=== PATIENT | male | born 1975 | race Caucasian/White ===

== ENCOUNTER 2018-07-03 11:30 | Emergency (ER) | payer OTHER ==
--- NOTE | 2018-07-03 11:35 | ED Physician Documentation ---
General Adult - HISTORIAN Historian: patient - HPI Stated Complaint: back pain Chief Complaint: Low Back Pain/ Injury Onset: days ago (4) Timing: still present Severity: mild Further Comments: yes (He denies any injury. States the pain is lower back like a cramp. He has no other pain. He has not tried any OTC meds or treatments for pain. Denies any loss of control of bowel or bladder. No other complaints) Last known Well Code/Unknown Code: Unknown - ROS CONST: no problems - PAST HX Past History: none Allergies/Adverse Reactions: Allergies Allergy/AdvReac Type Severity Reaction Status Date / Time No Known Allergies Allergy Verified 07/03/18 11:39 Home Medications: Ambulatory Orders Medication Instructions Recorded NK 07/03/18 - SOCIAL HX Smoking History: cigarettes Alcohol Use: none Drug Use: none - FAMILY HX Family History: No - REVIEWED ASSESSMENTS Nursing Assessment Reviewed: Yes Vitals Reviewed: Yes Progress - Progress Progress: 1220: Pt is sleeping in room. Awakened to discuss results. Plan is discussed and agreeable DG ED Results Lab/Radiology - Radiology Radiology Impressions: Lumbar spine History: Low back pain AP and lateral projections of the lumbar spine demonstrate normal alignment. There is moderately severe disc space narrowing with anterior spondylosis at L5/S1. There is mild facet arthropathy at L4/5 and L5/S1. Vertebral body height is maintained. Impression: Findings consistent with degenerative disc disease at L5/S1. Mild facet arthropathy at L4/5 and L5/S1. No acute osseous abnormality. Electronically signed on Jul 03, 2018 12:45:30 PM INSURANCE ANALYST by: Shweta Gee General Adult Physical Exam - PHYSICAL EXAM GENERAL APPEARANCE: no distress EENT: eye inspection normal, no signs of dehydration NECK: normal inspection RESPIRATORY: no resp distress, chest non-tender, breath sounds normal CVS: reg rate & rhythm, heart sounds normal ABDOMEN: soft, normal bowel sounds, no distension BACK: normal inspection, no CVA tenderness, other (mild tenderness with palpation lower back ) SKIN: warm/dry, normal color EXTREMITIES: non-tender, normal range of motion, no evidence of injury, no edema NEURO: oriented X3 Discharge Clincal Impression: Low back pain Qualifiers: Chronicity: acute Back pain laterality: bilateral Sciatica presence: unspecified whether sciatica present Qualified Code(s): M54.5 - Low back pain Referrals: Primary Doctor,No [Primary Care Provider] - 2 Days Comments: 1. Cyclobenzaprine 10 mg take 1 by mouth every 12 hours as needed for pain 2. Medrol Dose pack - take as directed 3. Tramadol 50 mg take 1 by mouth every 12 hours as needed for pain 4. Follow up with PCP in 2-4 days for further eval 5. Return to ER for any concerns Condition: Stable Disposition: 01 HOME, SELF-CARE Decision to Admit: NO Date of Decison to Admit: 07/03/18 Decision Time: 13:09
[2018-07-03 11:42] VITALS: BP 123/98
[2018-07-03] MEDS ORDERED: KETOROLAC TROMETHAMINE 60 MG/2 ML VIAL IM ONE (11:47)
[2018-07-03] MEDS ORDERED: ORPHENADRINE CITRATE 60 MG/2 ML ML IM ONE (11:47)
[2018-07-03] MEDS ORDERED: ORPHENADRINE CITRATE 60 MG/2 ML ML ONE (11:48)
[2018-07-03] MEDS ORDERED: KETOROLAC TROMETHAMINE 60 MG/2 ML VIAL ONE (11:48)
[2018-07-03 17:39] LABS: CANNABINOIDS NEGATIVE ng/mL (< 50); METHYLENEDIOXYMETHAMPHETAMINE NEGATIVE ng/mL (<500)
[2018-07-03 17:41] LABS: APPEARANCE,URINE CLEAR (CLEAR); COLOR,URINE YELLOW (YELLOW); OCCULT BLOOD,URINE TRACE-INTACT (NEGATIVE); PH URINE 7.5 (5.0 - 8.0); UROBILINOGEN URINE 0.2 Eu (0.2-1.0)
--- NOTE | 2018-07-03 19:06 | Diagnostic Imaging Report ---
EMILY TODD [facility] [address] [id number] Report Submission Date: Jul 03, 2018 12:45:30 PM BILLING CLERK Patient Study Name: KINZA ESCAMILLA Date: Jul 03, 2018 12:01:47 PM BILLING CLERK Modality Type: DX Gender: M Description: SPINE : 73 Institution: [facility] Physician: EMILY TODD Lumbar spine History: Low back pain AP and lateral projections of the lumbar spine demonstrate normal alignment. There is moderately severe disc space narrowing with anterior spondylosis at L5/S1. There is mild facet arthropathy at L4/5 and L5/S1. Vertebral body height is maintained. Impression: Findings consistent with degenerative disc disease at L5/S1. Mild facet arthropathy at L4/5 and L5/S1. No acute osseous abnormality. Electronically signed on Jul 03, 2018 12:45:30 PM BILLING CLERK by: Shweta VANCE
== END 2018-07-03 13:15 | disposition home or self-care (01) ==
LOC: ED 11:30
DX: M54.5 Low back pain (principal)
CPT/HCPCS: 72100; 80377; 81002; 96372; 99282; 99284; J1885; J2360; G0481